=== PATIENT | male | born 1995 | race Caucasian/White ===

== ENCOUNTER → 2020-01-29 | Outpatient (CLI) | payer BC ==
--- NOTE | 2020-01-29 15:20 | XR ---
2 view abdomen HISTORY: K 59.00 2 views the abdomen on 3 images Lung bases are clear. There is no evident bowel obstruction or pneumoperitoneum. Bone mineralization is normal. Calcifications the pelvis are felt likely to represent phleboliths. IMPRESSION: No significant abnormality is evident
[2020-01-29 19:12] LABS: Albumin 4.4 g/dL (3.80-4.90); Albumin/Globulin Ratio 1.83 (1.60-3.17); Bilirubin, Conjugated 0.2 mg/dL (0.20-0.40); Bilirubin,Unconjugated 0.2 mg/dL; Globulin 2.4 g/dL (1.6-3.3); Total Bilirubin 0.4 mg/dL (0.2-1.2); Total Protein 6.8 g/dL (6.2-8.2)
[2020-01-29 20:15] LABS: Hepatitis A Ab, Total Non-Reactive (Non-Reactive); Hepatitis B Surface AB- Quant 8.2 mIU/mL; Hepatitis B Surface Antibody Non-Reactive (Non-Reactive); Hepatitis B Surface Antigen Non-Reactive (Non-Reactive); Hepatitis C IgG Antibody Non-Reactive (Non-Reactive)
== END | disposition home or self-care (01) ==
LOC: LABWHC1 12:33
PROVIDERS: ATTEND Internal Medicine
DX: K59.00 Constipation, unspecified (principal); R74.0 Nonspecific elevation of levels of transaminase and lactic acid dehydrogenase [LDH]
CPT/HCPCS: 36415; 74019; 80076; 86706; 86708; 86803; 87340